=== PATIENT | female | born 1995 | race Caucasian/White ===

== ENCOUNTER → 2017-11-14 | Outpatient (CLI) | payer OTHER | LOC: EDSTATUS 07:45 → BMCIMAGING 07:50 | PROVIDERS: ATTEND Emergency Medicine | DX: S99.922A Unspecified injury of left foot, initial encounter (principal) ==

== ENCOUNTER 2018-02-21 22:08 | Emergency (ER) | payer OTHER ==
[2018-02-21 22:14] VITALS: BP 116/68
--- NOTE | 2018-02-21 22:22 | EDPHY ---
H & P Stated Complaint: LAC R THUMB/FROM TOP OF CAN Time Seen by Provider: 02/21/18 22:18 HPI/ROS: HPI: This is a 22-year-old female who presents with Chief Complaint: LAC R THUMB/FROM TOP OF CAN Location: Right thumb Quality: Laceration Duration: Prior to arrival Signs and Symptoms: + bleeding, no radiation, no numbness, no weakness, no tingling, no decreased range of motion, no swelling, no pain, no fever Timing: Acute Severity: Mild Context: Patient is a student at [employer], right-hand dominant, presents with accidentally cutting the base of her right thumb while trying to open up a can of black Olives. She reports that she was making a salad in adding black Olives to it. She reports that immediately started to bleed and she felt immediate, constant, moderate, nonradiating pain. She applied direct pressure and the bleeding stopped. Reports tetanus is up-to- date. Denies radiation, weakness, paresthesias, decreased range of motion. Modifying Factors: Direct pressure Comment: ROS: A comprehensive 10 system review of systems is otherwise negative aside from elements mentioned in the history of present illness. MEDICAL/SURGICAL/SOCIAL HISTORY: Medical history: Generally healthy. Takes oral control pills. LMP 2-3 weeks ago. Surgical history: Denies Social history: Student at [employer]. Denies alcohol, drug, tobacco use. CONSTITUTIONAL: Slightly anxious young adult white female, friends at bedside, awake and alert, no obvious distress HEENT: Atraumatic and normocephalic. NECK: supple EXTREMITIES: 2/2 pulses, strength 5/5, right thumb palmar aspect at the base near the MCP joint shows 3.0 cm, superficial, vertical, laceration with no active bleeding. DIP/PIP/MCP flexion/extension intact with good light touch sensation. no clubbing, no cyanosis or edema. NEUROLOGICAL: no focal neuro deficits. GCS 15. Light touch sensation intact. SKIN: Warm and dry, no erythema. no rash. Good capillary refill. Source: Patient Exam Limitations: No limitations - Personal History LMP (Females 10-55): 22-28 Days Ago Current Tetanus Diphtheria and Acellular Pertussis (TDAP): Yes - Medical/Surgical History Hx Asthma: No Hx Chronic Respiratory Disease: No Hx Diabetes: No Hx Cardiac Disease: No Hx Renal Disease: No Hx Cirrhosis: No Hx Alcoholism: No Hx HIV/AIDS: No Hx Splenectomy or Spleen Trauma: No Other PMH: IMPLANTS MOUTH SX - Social History Smoking Status: Never smoked Constitutional: Initial Vital Signs Temperature (C) 36.4 C 02/21/18 22:10 Heart Rate 68 02/21/18 22:10 Respiratory Rate 16 02/21/18 22:10 Blood Pressure 116/68 02/21/18 22:10 O2 Sat (%) 95 02/21/18 22:10 O2 Delivery Mode Room Air Allergies/Adverse Reactions: No Known Allergies Allergy (Unverified 02/21/18 22:11) Home Medications: Medication Instructions Recorded Control 02/21/18 Medical Decision Making Procedures: Procedure: Laceration repair. Verbal consent was obtained from the patient. The 3.0 cm, simple, superficial laceration on the right thumb was anesthetized in the usual fashion using 4 mL of 1% lidocaine without epinephrine. The wound was irrigated, draped and explored to its base with a gloved finger. There were no deep structures involved. No tendon injury was identified. The wound was repaired with #4, 5- 0 Prolene. Xeroform and clean sterile dressing applied. The procedure was performed by myself. ED Course/Re-evaluation: Tetanus is current. Local anesthesia provided and irrigated copiously. No indication for x-ray imaging. Laceration repaired and clean sterile dressing applied. Verbal and written wound care instructions provided. No signs of neurovascular compromise/tenting of skin/compartment syndrome/ extremities and joints examined above and below area of concern and are neurovascularly intact. This patient was seen under the supervision of my secondary supervising physician. I evaluated care for this patient independently. Differential Diagnosis: Differential diagnosis includes but is not limited to nerve injury, tendon injury, laceration, foreign body, nail injury. Departure - Departure Disposition: Home, Routine, Self-Care Clinical Impression: Laceration of right thumb without foreign body without damage to nail Qualifiers: Encounter type: initial encounter Qualified Code(s): S61.011A - Laceration without foreign body of right thumb without damage to nail, initial encounter Condition: Good Instructions: Care For Your Stitches (ED), Laceration (ED) Additional Instructions: Keep the dressing dry and in place for 48 hours. After 48 hours, you may remove the dressing; wash the site daily with mild soap and water; then pat dry. Take Tylenol 650 mg every 4 hours and/or Ibuprofen 600 mg every 8 hours with food as needed for pain. Wound Care Follow-Up: Removal of sutures in [10-14] days. Suture removal is complimentary in uncomplicated cases. Infection or abnormal findings would require reevaluation by the MD. In that case, you may be billed. Referrals: [facility]IS[facility],. [Clinic] - As per Instructions
== END 2018-03-07 18:05 | disposition home or self-care (01) ==
PROC: 0HQFXZZ Repair Right Hand Skin, External Approach (ICD-10-PCS; principal; 2018-02-21)
DX: S61.011A Laceration without foreign body of right thumb without damage to nail, initial encounter (principal); W26.8XXA Contact with other sharp object(s), not elsewhere classified, initial encounter; Y93.G1 Activity, food preparation and clean up; Y92.9 Unspecified place or not applicable; Y99.9 Unspecified external cause status